=== PATIENT | female | born 1985 | race American Indian/Alaskan Native ===

== ENCOUNTER 2020-05-09 09:17 | Outpatient (CLI) | payer OTHER ==
[2020-05-09] MEDS ORDERED: PRENATAL CAPLE1 EAC1 PO (09:46)
== END 2020-05-09 13:19 | disposition home or self-care (01) ==
LOC: OBS/DEL 09:17
PROVIDERS: ATTEND Obstetrics & Gynecology
DX: O47.1 False labor at or after 37 completed weeks of gestation (principal)

== ENCOUNTER 2020-05-19 07:56 | Inpatient (IN) | payer OTHER ==
[~2020-05-19] VITALS: Ht 167.6 cm; Wt 78.5 kg
[~2020-05-19 07:56] MED LIST: PRENATAL CAPLE1 EAC1 PO
[2020-05-19] MEDS ORDERED: PRENATAL TABLE1 EAC1 PO (08:38)
== END 2020-05-21 10:26 | disposition home or self-care (01) | DRG 768 ==
LOC: OB/GYN 07:56 → LDR 07:56 → OB/GYN 19:19
PROVIDERS: ADMIT Obstetrics & Gynecology; ATTEND Obstetrics & Gynecology
PROC: 0UQC7ZZ Repair Cervix, Via Natural or Artificial Opening (ICD-10-PCS; 2020-05-19)
PROC: 0KQM0ZZ Repair Perineum Muscle, Open Approach (ICD-10-PCS; 2020-05-19)
PROC: 4A1HXFZ Monitoring of Products of Conception, Cardiac Rhythm, External Approach (ICD-10-PCS; 2020-05-19)
PROC: 3E033VJ Introduction of Other Hormone into Peripheral Vein, Percutaneous Approach (ICD-10-PCS; 2020-05-19)
PROC: 0UQMXZZ Repair Vulva, External Approach (ICD-10-PCS; 2020-05-19)
PROC: 10E0XZZ Delivery of Products of Conception, External Approach (ICD-10-PCS; principal; 2020-05-19 17:00)
DX: O70.1 Second degree perineal laceration during delivery (principal); Z37.0 Single live birth; O71.3 Obstetric laceration of cervix; O71.82 Other specified trauma to perineum and vulva; Z3A.38 38 weeks gestation of pregnancy

== ENCOUNTER 2022-12-26 11:07 | Emergency (ER) | payer OTHER ==
[~2022-12-26] VITALS: Ht 172.7 cm; Wt 72.6 kg
[~2022-12-26 11:07] MED LIST changes: +PRENATAL TABLE1 EAC1 PO
== END 2022-12-26 17:36 | disposition home or self-care (01) ==
LOC: ER 11:07
DX: S76.011A Strain of muscle, fascia and tendon of right hip, initial encounter (principal); X58.XXXA Exposure to other specified factors, initial encounter; Y93.9 Activity, unspecified; Y92.9 Unspecified place or not applicable; Y99.9 Unspecified external cause status

== ENCOUNTER 2024-11-02 08:23 | Emergency (ER) | payer OTHER ==
[~2024-11-02] VITALS: Ht 167.6 cm; Wt 69.9 kg
[2024-11-02 09:38] LABS: HEMOGLOBIN 11.5 g/dL (12.0-15.00); MEAN CELL VOLUME 81.7 fL (80.00-100.00); MEAN CORPUSCULAR HEMOGLOBIN 26.9 pg (27.00-32.0); MEAN CORPUSCULAR HGB CONC 32.9 g/dl (32.0-36.0); PLATELET COUNT 249 K/uL (150-450); RED BLOOD COUNT 4.28 M/uL (4.00-6.00); RED CELL DISTRIBUTION WIDTH 13.7 % (11.5-14.5)
== END 2024-11-02 10:32 | disposition home or self-care (01) ==
LOC: ER 08:25
PROVIDERS: General Practice
DX: R05.8 Other specified cough (principal); Z20.822 Contact with and (suspected) exposure to COVID-19